=== PATIENT | male | born 1940 | race Caucasian/White ===

== ENCOUNTER 2020-05-02 19:18 | Emergency (ER) | payer MEDICARE, OTHER ==
--- NOTE | 2020-05-02 20:19 | CR ---
[id number] RAD/RAD Chest PA or AP 1V EXAM: SINGLE VIEW CHEST. INDICATION: WEAKNESS COMPARISON: NO PREVIOUS SIMILAR EXAM IS AVAILABLE FINDINGS: The lungs are clear The cardiomediastinal contour is enlarged Median sternotomy sutures are seen There may be minimal pleural thickening at the left midlung IMPRESSION: NO PNEUMONIA OR EDEMA Ferdinand Huffman MD 05/02/202017 Thank you for allowing us to participate in the care of your patient.
--- NOTE | 2020-05-02 20:41 | EDM.PDOC ---
ED HPI GENERAL MEDICAL PROBLEM - General Time Seen by Provider: 05/02/20 19:18 Source of Information: Reports: Patient, Family History Limitations: Reports: No Limitations - History of Present Illness INITIAL COMMENTS - FREE TEXT/NARRATIVE: Pt. presents to ER with complaints of "feeling strange", decreased appetite, and fatigue. Family states that the patient has been "ashen". He has been falling asleep which is concerning to family as well. Pt. just got back into [place] from [place]. He flew in yesterday. Daughter is the one that is primarily concerned. She has not seen the patient for months. Pt. offers no other complaints. Denies any chest pain. No shortness of breath. No cough. Denies congestion. No fever or chills. No nausea, vomiting, or diarrhea. No bloody stools. No numbness/tingling in extremities. No difficulty with speech, but he has been weak and having troubles getting around at home today. Appetite has been poor, but denies any abdominal pain. Onset: Today Onset Date: 05/02/20 Location: Reports: Generalized - Related Data Allergies Allergy/AdvReac Type Severity Reaction Status Date / Time No Known Allergies Allergy Verified 10/10/18 16:29 Home Meds: Home Meds Ascorbic Acid [Vitamin C] 500 mg PO DAILY 10/10/18 [History] Aspirin 325 mg PO DAILY 10/10/18 [History] Cholecalciferol (Vitamin D3) [Vitamin D3] 1,000 unit PO DAILY 10/10/18 [History] Gabapentin [Neurontin] 600 mg PO BID 10/10/18 [History] Insulin Aspart [NovoLOG] 5 units SQ WITHLUNCH 10/10/18 [History] Insulin Degludec/Liraglutide [Xultophy 100 Unit-3.6 mg/ml] 20 ml SQ DAILY [History] Isosorbide Mononitrate [Imdur] 15 mg PO DAILY 10/10/18 [History] atorvaSTATin [Lipitor] 10 mg PO BEDTIME 10/10/18 [History] carvediloL [Carvedilol] 1 tab PO BID 10/10/18 [History] glipiZIDE [Glucotrol] 10 mg PO DAILY 10/10/18 [History] metFORMIN HCl [Metformin HCl] 1,000 mg PO BID 10/10/18 [History] Past Medical History Cardiovascular History: Reports: Bypass, CAD, High Cholesterol, Hypertension, Stents Endocrine/Metabolic History: Reports: Diabetes, Type II ED ROS GENERAL - Review of Systems Review Of Systems: See Below Constitutional: Reports: Malaise, Fatigue, Decreased Appetite. Denies: Fever, Chills, Night Sweats, Diaphoresis HEENT: Reports: No Symptoms Respiratory: Reports: No Symptoms Cardiovascular: Reports: No Symptoms Endocrine: Reports: No Symptoms GI/Abdominal: Reports: Anorexia, Decreased Appetite. Denies: Abdominal Pain, Black Stool, Bloody Stool, Constipation, Diarrhea, Hematemesis, Hematochezia : Reports: No Symptoms. Denies: Dysuria, Frequency Musculoskeletal: Reports: No Symptoms Skin: Reports: No Symptoms Neurological: Reports: Difficulty Walking. Denies: Confusion, Dizziness, Headache, Numbness, Paresthesia, Trouble Speaking Psychiatric: Reports: No Symptoms Hematologic/Lymphatic: Reports: No Symptoms Immunologic: Reports: No Symptoms ED EXAM, GENERAL - Physical Exam Exam: See Below Exam Limited By: No Limitations General Appearance: Alert, WD/WN, No Apparent Distress Eye Exam: Bilateral Eye: EOMI, Normal Fundi, Normal Inspection, PERRL Nose: Normal Inspection, Normal Mucosa, No Blood Throat/Mouth: Normal Inspection, Normal Lips, Normal Teeth, Normal Gums, Normal Oropharynx, Normal Voice, No Airway Compromise Head: Atraumatic, Normocephalic Neck: Normal Inspection, Supple, Non-Tender, Full Range of Motion Respiratory/Chest: No Respiratory Distress, Lungs Clear, Normal Breath Sounds, No Accessory Muscle Use, Chest Non-Tender Cardiovascular: Normal Peripheral Pulses, Regular Rate, Rhythm, No Edema, No JVD , No Murmur Peripheral Pulses: 4+: Radial (L), Radial (R), Posterior Tibial (L), Posterior Tibial (R), Dorsalis Pedis (L), Dorsalis Pedis (R) GI/Abdominal: Normal Bowel Sounds, Soft, Non-Tender, No Organomegaly, No Distention, No Mass (Male) Exam: Deferred Rectal (Males) Exam: Deferred Back Exam: Normal Inspection, Full Range of Motion Extremities: Normal Inspection, Normal Range of Motion, Non-Tender, No Pedal Edema, Normal Capillary Refill Neurological: Alert, Oriented, CN II-XII Intact, Normal Cognition, Normal Reflexes, No Motor/Sensory Deficits, Other (is able to stand and transfer to wheelchair) Psychiatric: Normal Affect, Normal Mood Skin Exam: Warm, Dry, Intact, Normal Color, No Rash Lymphatic: No Adenopathy EKG INTERPRETATION Rhythm: NSR QRS: LBBB Course - Orders/Labs/Meds Orders: Active Orders 24 hr Category Date Time Status EKG Documentation Completion [RC] STAT Care 05/02/20 19:41 Active CULTURE BLOOD [BC] Stat Lab 05/02/20 19:57 Received CULTURE BLOOD [BC] Stat Lab 05/02/20 20:02 Received Blood Culture x2 Reflex Set [OM.PC] Stat Oth 05/02/20 19:43 Ordered Labs: Laboratory Tests 05/02/20 05/02/20 05/02/20 Range/Units 19:57 19:57 19:57 WBC 4.7 (4.0-10.0) x10^3/uL RBC 3.96 L (4.5-6.0) x10^6/uL Hgb 12.2 L (14.0-18.0) g/dL Hct 36.6 L (40.0-52.0) % MCV 92.4 D (78.0-93.0) fL MCH 30.8 (26.0-32.0) pg MCHC 33.3 (32.0-36.0) g/dL RDW Coeff of Didi 13.3 (10.0-15.0) % Plt Count 149 (130-400) x10^3/uL Neut % (Auto) 66.6 (50.0-80.0) % Lymph % (Auto) 18.6 L (25.0-50.0) % [place] % (Auto) 14.2 H (2.0-11.0) % Eos % (Auto) 0.4 (0.0-4.0) % Baso % (Auto) 0.2 (0.2-1.2) % PT 10.0 (9.5-12.3) SEC INR 0.9 L (2.0-3.5) Sodium 139 (136-145) mmol/L Potassium 4.0 (3.5-5.1) mmol/L Chloride 103 (98-107) mmol/L Carbon Dioxide 25 (21-32) mmol/L Anion Gap 15.0 (10-20) mmol/L BUN 31 H (7-18) mg/dL Creatinine 1.4 H (0.70-1.30) mg/dL Est Cr Clr Drug Dosing TNP Estimated GFR (MDRD) 49 Glucose 68 L (74-106) mg/dL Lactic Acid (0.4-2.0) mmol/L Calcium 8.2 L (8.5-10.1) mg/dL Corrected Calcium 8.92 (8.5-10.1) mg/dL Total Bilirubin 0.5 (0.2-1.0) mg/dL AST 42 H (15-37) U/L ALT 32 (16-63) U/L Alkaline Phosphatase 54 (46-116) U/L Troponin I 0.017 (<=0.056) ng/mL C-Reactive Protein 4.1 H (<=0.9) mg/dL Total Protein 6.7 (6.4-8.2) g/dL Albumin 3.1 L (3.4-5.0) g/dL Globulin 3.6 Albumin/Globulin Ratio 0.86 TSH, Ultra Sensitive 1.378 (0.358-3.74) uIU/mL Urine Color (YELLOW) Urine Appearance (CLEAR) Urine pH (5.0-8.0) Ur Specific [place] Urine Protein (NEGATIVE) mg/dL Urine Glucose (UA) (NEGATIVE) mg/dL Urine Ketones (NEGATIVE) mg/dL Urine Occult Blood (NEGATIVE) Urine Nitrite (NEGATIVE) Urine Bilirubin (NEGATIVE) Urine Urobilinogen (0.2) EU/dL Ur Leukocyte Esterase (NEGATIVE) U Hyaline Cast (Auto) Urine RBC (NOT SEEN) /HPF Urine WBC (NOT SEEN) /HPF Ur Squamous Epith Cells (NEGATIVE) /HPF Amorphous Sediment Urine Bacteria (NEGATIVE) /HPF Urine Mucus (NEGATIVE) /LPF 05/02/20 05/02/20 Range/Units 19:57 20:30 WBC (4.0-10.0) x10^3/uL RBC (4.5-6.0) x10^6/uL Hgb (14.0-18.0) g/dL Hct (40.0-52.0) % MCV (78.0-93.0) fL MCH (26.0-32.0) pg MCHC (32.0-36.0) g/dL RDW Coeff of Didi (10.0-15.0) % Plt Count (130-400) x10^3/uL Neut % (Auto) (50.0-80.0) % Lymph % (Auto) (25.0-50.0) % [place] % (Auto) (2.0-11.0) % Eos % (Auto) (0.0-4.0) % Baso % (Auto) (0.2-1.2) % PT (9.5-12.3) SEC INR (2.0-3.5) Sodium (136-145) mmol/L Potassium (3.5-5.1) mmol/L Chloride (98-107) mmol/L Carbon Dioxide (21-32) mmol/L Anion Gap (10-20) mmol/L BUN (7-18) mg/dL Creatinine (0.70-1.30) mg/dL Est Cr Clr Drug Dosing Estimated GFR (MDRD) Glucose (74-106) mg/dL Lactic Acid 1.7 (0.4-2.0) mmol/L Calcium (8.5-10.1) mg/dL Corrected Calcium (8.5-10.1) mg/dL Total Bilirubin (0.2-1.0) mg/dL AST (15-37) U/L ALT (16-63) U/L Alkaline Phosphatase (46-116) U/L Troponin I (<=0.056) ng/mL C-Reactive Protein (<=0.9) mg/dL Total Protein (6.4-8.2) g/dL Albumin (3.4-5.0) g/dL Globulin Albumin/Globulin Ratio TSH, Ultra Sensitive (0.358-3.74) uIU/mL Urine Color Dark yellow H (YELLOW) Urine Appearance Slightly cloudy H (CLEAR) Urine pH 5.0 (5.0-8.0) Ur Specific [place] 1.025 Urine Protein 30 H (NEGATIVE) mg/dL Urine Glucose (UA) Negative (NEGATIVE) mg/dL Urine Ketones Trace H (NEGATIVE) mg/dL Urine Occult Blood Negative (NEGATIVE) Urine Nitrite Negative (NEGATIVE) Urine Bilirubin Small H (NEGATIVE) Urine Urobilinogen 1.0 (0.2) EU/dL Ur Leukocyte Esterase Negative (NEGATIVE) U Hyaline Cast (Auto) Few Urine RBC Not seen (NOT SEEN) /HPF Urine WBC 0-5 (NOT SEEN) /HPF Ur Squamous Epith Cells Not seen (NEGATIVE) /HPF Amorphous Sediment Few Urine Bacteria Few H (NEGATIVE) /HPF Urine Mucus Few H (NEGATIVE) /LPF - Radiology Interpretation Free Text/Narrative:: chest x-ray is negative Departure - Departure Time of Disposition: 21:18 Disposition: Home, Self-Care 01 Clinical Impression: Dehydration - Discharge Information Instructions: Dehydration, Adult, [id number] Referrals: Louise Lopez, [Primary Care Provider] - Additional Instructions: Drink plenty of water. Make sure you eat tonight, even if you don't feel like it. Your blood sugar is on the low side of normal. Recheck in clinic at the early part of next week. - My Orders Last 24 Hours: My Active Orders 05/02/20 19:41 EKG Documentation Completion [RC] STAT 05/02/20 19:43 Blood Culture x2 Reflex Set [OM.PC] Stat 05/02/20 19:57 CULTURE BLOOD [BC] Stat 05/02/20 20:02 CULTURE BLOOD [BC] Stat - Assessment/Plan Last 24 Hours: My Active Orders 05/02/20 19:41 EKG Documentation Completion [RC] STAT 05/02/20 19:43 Blood Culture x2 Reflex Set [OM.PC] Stat 05/02/20 19:57 CULTURE BLOOD [BC] Stat 05/02/20 20:02 CULTURE BLOOD [BC] Stat Plan: Drink plenty of water. Make sure you eat tonight, even if you don't feel like it. Your blood sugar is on the low side of normal. Recheck in clinic at the early part of next week.
[2020-05-02 20:43] LABS: CHLORIDE,CL 103 mmol/L (98-107); SODIUM,NA 139 mmol/L (136-145)
== END 2020-05-02 21:30 | disposition home or self-care (01) ==
LOC: VM.ED 19:18
DX: E86.0 Dehydration (principal); I25.10 Atherosclerotic heart disease of native coronary artery without angina pectoris; E78.00 Pure hypercholesterolemia, unspecified; I10 Essential (primary) hypertension; E11.9 Type 2 diabetes mellitus without complications; Z79.82 Long term (current) use of aspirin; Z79.4 Long term (current) use of insulin; Z79.899 Other long term (current) drug therapy; Z95.5 Presence of coronary angioplasty implant and graft
CPT/HCPCS: 36415; 71045; 80053; 81001; 83605; 84443; 84484; 85025; 85610; 86140; 87040; 93005; 93010; 99284-25; 99284-GF

== ENCOUNTER 2024-06-04 08:10 | Emergency (ER) | payer MEDICARE, OTHER ==
[2024-06-04 08:34] LABS: BASOPHILS PERCENT AUTO 0.1 % (0.2-1.2); EOSINOPHILS PERCENT AUTO 0.3 % (0.0-4.0); HEMATOCRIT 36.8 % (40.0-52.0); HEMOGLOBIN 12.1 g/dL (14.0-18.0); IMMATURE GRAN ABSOLUTE AUTO 0.06 x10^3/uL (0.00-0.07); LYMPHOCYTES PERCENT AUTO 2.1 % (25.0-50.0); MEAN CORPUSCULAR HEMOGLOBIN 32.5 pg (26.0-32.0); MEAN CORPUSCULAR HGB CONC 32.9 g/dL (32.0-36.0); MEAN CORPUSCULAR VOLUME 98.9 fL (78.0-93.0); MONOCYTES ABSOLUTE AUTO 1.2 x10^3/uL (0.0-0.8); MONOCYTES PERCENT AUTO 7.8 % (2.0-11.0); NEUTROPHILS ABSOLUTE AUTO 14.1 x10^3/uL (1.8-7.7); NEUTROPHILS PERCENT AUTO 89.3 % (50.0-80.0); PLATELET COUNT,PLT 166 x10^3/uL (130-400); RED BLOOD CELL COUNT 3.72 x10^6/uL (4.5-6.0); WHITE BLOOD CELL COUNT,WBC 15.8 x10^3/uL (4.0-10.0)
[2024-06-04 08:43] LABS: LYMPHOCYTES ABSOLUTE AUTO 0.3 x10^3/uL (1.0-4.8)
[2024-06-04 08:50] LABS: INR 1.3 (0.9-1.1); PROTHROMBIN TIME 12.5 SEC (8.9-11.5)
[2024-06-04 08:57] LABS: LACTIC ACID 1.7 mmol/L (0.4-2.0)
[2024-06-04] MEDS: Sodium Chloride 0.9% 1,000 ML IV ONE (09:05)
[2024-06-04] MEDS: cefTRIAXone 1 GM Vial IVPUSH ONE (09:05)
[2024-06-04 09:06] LABS: A/G RATIO 0.91; ANION GAP 17.4 mmol/L (5-15); BILIRUBIN TOTAL 1.5 mg/dL (0.2-1.0); CALCIUM 8.6 mg/dL (8.5-10.1); CREATININE 1.5 mg/dL (0.70-1.30); EST CRCL DRUG DOSING (CG) 38.53 mL/min; POTASSIUM,K 3.4 mmol/L (3.5-5.1); PROTEIN TOTAL,TP 6.3 g/dL (6.4-8.2)
[2024-06-04 10:49] LABS: FECAL OCCULT BLOOD INTERP POSITIVE (NEGATIVE)
== END 2024-06-04 13:00 | disposition short-term general hospital (02) ==
LOC: VM.ED 08:10
DX: J18.9 Pneumonia, unspecified organism (principal); K92.1 Melena; R55 Syncope and collapse; I10 Essential (primary) hypertension; E78.00 Pure hypercholesterolemia, unspecified; I25.10 Atherosclerotic heart disease of native coronary artery without angina pectoris; E11.9 Type 2 diabetes mellitus without complications; Z95.5 Presence of coronary angioplasty implant and graft; Z79.01 Long term (current) use of anticoagulants; Z79.4 Long term (current) use of insulin; Z79.84 Long term (current) use of oral hypoglycemic drugs; Z79.899 Other long term (current) drug therapy
CPT/HCPCS: 36415; 71045; 80053; 82274; 83605; 83880; 84484; 85025; 85610; 87040; 96361; 96374; 99285; J0696; J7030